=== PATIENT | male | born 1960 | race Caucasian/White ===

== ENCOUNTER 2020-09-05 20:16 | Emergency (ER) | payer SELFPAY ==
[2020-09-05] VITALS (23 sets, daily range): BP systolic 140–158; BP diastolic 89–106; PULSE 84–104; RESP 13–26; TEMP 36.3; O2SAT 92–100
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
--- NOTE | 2020-09-05 20:26 | ECG_ITS ---
Measurements Intervals [place] Rate: 94 P: 129 LA: 226 QRS: 5 QRSD: 190 T: 198 QT: 417 QTc: 524 Interpretive Statements SINUS RHYTHM WITH FIRST DEGREE AV BLOCK LEFT BUNDLE BRANCH BLOCK BASELINE ARTIFACT- AVF, V5 ABNORMAL ECG Electronically Signed On 09-06-2020 6:53:17 [employer] by Aamir West D.O.
[2020-09-05] MEDS: methylPREDNISolone SOD SUCC 125 MG VIAL IV PUSH (20:33)
[2020-09-05 20:42] LABS: Basophils Percent Auto 0.4 % (0.2-1.2); Eosinophils Percent Auto 0.4 % (0-4.4); Hematocrit 48.7 % (42.0-52.0); Hemoglobin 16.6 g/dL (14.0-18.0); Immature Granulocyte Absolute 0.06 K/mm3 (0.00-0.031); Immature Granulocyte Percent A 0.8 % (0-0.5); Lymphocytes Absolute Auto 1.32 K/mm3 (0.9-3.2); Lymphocytes Percent Auto 16.8 % (18.3-44.2); Mean Corpuscular HGB Conc 34.1 g/dl (32-36); Mean Corpuscular Hemoglobin 32.9 pg (26-34); Mean Corpuscular Volume 96.6 fl (80-100); Mean Platelet Volume 9.4 fl (7.4-10.4); Monocytes Absolute Auto 0.4 K/mm3 (0.1-0.6); Monocytes Percent Auto 4.5 % (2.6-8.5); Neutrophils Absolute Auto 6.1 K/mm3 (1.3-6.7); Neutrophils Percent Auto 77.1 % (45.5-73.1); Platelet Count Result 244 k/mm3 (150-375); Red Blood Count 5.04 M/mm3 (4.6-6.20); Red Cell Distribution Width 12.4 % (11.5-14.5); White Blood Count 7.8 K/mm3 (4.5-10.0)
[2020-09-05 20:53] LABS: Alveolar/Arterial O2 Gradient 107.5 mmHg; Base Excess ABG -4.6 mEq/l (+/-2.0); Carboxyhemoglobin 0.7 % THb (0-2.0); Fractional Inspired Oxygen 32 %; HCO3 ABG 21.5 mEq/l (22.0-26.0); Methemoglobin ABG 0.5 %THb (0-1.5); Oxygen Content ABG 21.1 %vol (16.0-22.0); Oxygen Saturation ABG 92.9 % (95.0-100.0); Oxyhemoglobin 90.9 % THb (90.0-100.0); PCO2 ABG 42.9 mmHg (35.0-45.0); PO2 ABG 70.5 mmHg (80.0-100.0); Reduced Hemoglobin 7.9 %THb (0-5.0); Total Hemoglobin 16.5 g/dL (12.0-18.0); pH ABG 7.317 (7.350-7.450)
[2020-09-05 20:54] LABS: Device NASAL CANNULA; Modified Allen's Test Pass; Site Drawn RIGHT RADIAL
[2020-09-05] MEDS: ALBUTEROL SULFATE NEB 2.5 MG/0.5 ML INH 5 MG INHALATION (20:55)
[2020-09-05] MEDS: IPRATROPIUM BR 0.02% INH SOLN 0.5 MG/2.5 ML VIAL INHALATION (20:55)
[2020-09-05 21:00] LABS: Anion Gap 7 mmol/L (8-16); Blood Urea Nitrogen 11 mg/dL (9-20); Calcium 8.4 mg/dL (8.4-10.2); Carbon Dioxide 25 mmol/L (22-30); Chloride 102 mmol/L (98-107); Estimated Glomerular Filt Rate > 60; Glucose 97 mg/dL (75-110); Potassium 4.3 mmol/L (3.4-5.0); Sodium 134 mmol/L (137-145)
[2020-09-05 21:03] LABS: NT Pro B Type Natriuretic Pept 978 PG/ML (5-100)
--- NOTE | 2020-09-05 21:51 | PC.NURSE ---
Patient on 2L via [place] at this time, attempting to wean patient off oxygen.
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
--- NOTE | 2020-09-05 22:15 | PC.NURSE ---
Patient taken off oxygen. Tolerating well. O2 sat 96% on 2L.
[2020-09-05] MEDS: ALBUTEROL SULFATE NEB 2.5 MG/0.5 ML INH 10 MG INHALATION (22:33)
[2020-09-06] VITALS (9 sets, daily range): BP systolic 113; BP diastolic 65; PULSE 102–113; RESP 16–22; O2SAT 92–99
== END 2020-09-06 01:30 | disposition home or self-care (01) ==
PROVIDERS: Emergency Provider Emergency Medicine; PCP Internal Medicine
DX: T59.811A Toxic effect of smoke, accidental (unintentional), initial encounter (principal); J68.0 Bronchitis and pneumonitis due to chemicals, gases, fumes and vapors; J70.5 Respiratory conditions due to smoke inhalation
CPT/HCPCS: 36415; 36600; 71046; 80048; 82375; 82805; 83050; 83880; 85025; 93005; 94640; 96374; 99284; J2930